=== PATIENT | female | born 1975 | race African-American/Black ===

== ENCOUNTER 2018-02-08 19:41 | Inpatient (IN) ==
[2018-02-09] MEDS ORDERED: ONDANSETRON 4 MG/2 ML VIAL IV STA (00:59)
[2018-02-09] MEDS ORDERED: KETOROLAC 30 MG/1 ML VIAL IV STA (00:59)
[2018-02-09] MEDS ORDERED: SODIUM CHLORIDE 0.9% 1,000 ML IV STA (00:59)
[2018-02-09] MEDS ORDERED: cefTRIAXone 1,000 MG in SODIUM CHLORIDE 0.9% 100 ML IV STA (00:59)
[2018-02-09] MEDS ORDERED: HYDROmorphone 2 MG/1 ML VIAL IV STA (00:59)
[2018-02-09 01:34] LABS: Apearance,Urine CLOUDY (Clear); Bacteria,Urine Moderate /HPF (Few); Bilirubin,Urine Negative (Negative); Blood, Urine Small mg/dL (Negative); Glucose,Urine (UA) >=500 mg/dL (Negative); Ketones,Urine Negative (Negative); Mucus,Urine Occasional /LPF (Occasional); Nitrite,Urine Positive (Negative); Protein,Urine 100 MG/DL; RBC,Urine 36 /HPF (0-4); Squamous Epithelial Cell,Urine Occasional /HPF (0-10); Urine Color Yellow (Yellow); Urine Specific Gravity 1.018 (1.001-1.035); Urine Urobilinogen < 2.0 EU/DL (0.2-1.0); WBC,Urine 785 /HPF (0-6)
[2018-02-09 01:51] LABS: Basophils # 0.1 10*3/uL (0.0-0.2); Basophils % 0.3 % (0.0-0.8); Eosinophils % 0.2 % (0.00-10.9); Hematocrit 29.6 VOL% (35.7-47.0); Hemoglobin 8.4 GM/DL (12.0-16.0); Immature Granulocytes % 0.5 %; Lymphocytes # 1.9 10*3/uL (1.4-4.0); Lymphocytes % 9.2 % (21.3-54.2); Mean Corpuscular HGB Conc 28.4 GM/DL (32-36); Mean Corpuscular Hemoglobin 16 PG (27-34); Mean Corpuscular Volume 57.3 FL (87-102); Monocytes # 2.1 10*3/uL (0.11-0.8); Monocytes % 10.2 % (1.7-12.7); Neutrophils % 79.6 % (38.7-73.9); Platelet Count 419 T/CUMM (130-400); Red Blood Count 5.17 MC/CUMM (3.8-5.5); Red Cell Distribution Width 20.7 % (9.3-17.3); White Blood Count 20.1 T/CUMM (4-12)
[2018-02-09] MEDS ORDERED: HYDROmorphone 2 MG/1 ML VIAL ONE (02:03)
[2018-02-09] MEDS ORDERED: cefTRIAXone 1,000 MG VIAL ONE (02:03)
[2018-02-09] MEDS ORDERED: KETOROLAC 30 MG/1 ML VIAL ONE (02:03)
[2018-02-09] MEDS ORDERED: ONDANSETRON 4 MG/2 ML VIAL ONE (02:03)
[2018-02-09 02:14] LABS: Albumin 3.5 G/DL (3.4-5.0); Bilirubin,Total 0.4 MG/DL (0.2-1.0); Calcium 9.1 MG/DL (8.5-10.1); Lactic Acid 0.9 MMOL/L (0.4-2.0); Osmolality,Calculated 275.8 MOS/KG (273-304); Potassium 3.9 MMOL/L (3.5-5.1); Total Protein 7.9 G/DL (6.4-8.3)
[2018-02-09] MEDS ORDERED: ACETAMINOPHEN 325 MG TABLET PO PRN (02:46)
[2018-02-09] MEDS ORDERED: ONDANSETRON 4 MG/2 ML VIAL IV PRN (02:46)
[2018-02-09] MEDS ORDERED: MORPHINE 4 MG/1 ML VIAL IV PRN (02:46)
[2018-02-09] MEDS ORDERED: diphenhydrAMINE CAP 25 MG CAPSULE PO ONE (02:51)
[2018-02-09] MEDS ORDERED: LEVOFLOXACIN INJ 500 MG in PREMIX 1 EACH IV SCH (03:00)
[2018-02-09] MEDS: SODIUM CHLORIDE 0.9% 1,000 ML IV SCH ×2 (03:47→19:15)
[2018-02-09 04:28] LABS: Band Neutrophils 3 % (0-10); Lymphocytes 15 % (20-55); Platelet Estimate Normal; Segmented Neutrophils 73 % (50-85); Total Cells Counted 100
[2018-02-09 04:29] LABS: Atypical Lymphocytes Few; Microcytosis 2+
[2018-02-09 04:30] LABS: Hypochromasia 1+
[2018-02-09] MEDS ORDERED: DEXTROSE 50% 25 GM/50 ML VIAL IV PRN (07:23)
[2018-02-09] MEDS ORDERED: GLUCAGON 1 MG VIAL IM PRN (07:23)
[2018-02-09 07:55] LABS: Basophils # 0.1 10*3/uL (0.0-0.2); Basophils % 0.4 % (0.0-0.8); Eosinophils # 0.1 10*3/uL (0.0-0.87); Eosinophils % 0.7 % (0.00-10.9); Hematocrit 25.9 VOL% (35.7-47.0); Hemoglobin 7.7 GM/DL (12.0-16.0); Immature Granulocytes % 0.6 %; Lymphocytes # 2.4 10*3/uL (1.4-4.0); Mean Corpuscular HGB Conc 29.7 GM/DL (32-36); Mean Corpuscular Hemoglobin 17 PG (27-34); Mean Corpuscular Volume 55.9 FL (87-102); Monocytes # 1.9 10*3/uL (0.11-0.8); Monocytes % 11.6 % (1.7-12.7); Neutrophils # 11.6 10*3/uL (1.4-7.4); Neutrophils % 71.7 % (38.7-73.9); Platelet Count 365 T/CUMM (130-400); Red Blood Count 4.63 MC/CUMM (3.8-5.5); Red Cell Distribution Width 20.4 % (9.3-17.3); White Blood Count 16.2 T/CUMM (4-12)
[2018-02-09 08:05] LABS: Target Cells Few
[2018-02-09 08:06] LABS: Hypochromasia 2+; Microcytosis 2+; Polychromasia Slight
[2018-02-09 08:07] LABS: Ovalocytes Few; Platelet Estimate Normal
[2018-02-09 08:16] LABS: Folate 8.1 NG/ML (5.4-24.0); Vitamin B12 294 PG/ML (211-911)
[2018-02-09 09:20] LABS: Sedimentation Rate-Westergren 35 MM/HR (0-20)
[2018-02-09] MEDS: INSULIN REGULAR 100 UNIT/ML SUBCUT SCH ×4 (09:33→22:00)
[2018-02-09] MEDS: ENOXAPARIN 40 MG/0.4 ML SYRINGE SUBCUT SCH (09:34)
[2018-02-09 10:46] LABS: Hemoglobin A1 (Alkaline) 72.9 % (96.5-98.5); Hemoglobin A2 (Alkaline) 2.7 % (1.5-3.5)
[2018-02-09 10:49] LABS: Hemoglobin S (Alkaline) 24.4 %
[2018-02-09] MEDS ORDERED: SODIUM CHLORIDE 0.9% IV ONE (11:30)
[2018-02-09] MEDS ORDERED: GENTAMICIN IV ONE (11:30)
[2018-02-09 16:18] LABS: Apearance,Urine CLOUDY (Clear); Bilirubin,Urine Negative (Negative); Blood, Urine Negative (Negative); Glucose,Urine (UA) >=500 mg/dL (Negative); Ketones,Urine Negative (Negative); Mucus,Urine Occasional /LPF (Occasional); Nitrite,Urine Negative (Negative); Protein,Urine 30 MG/DL; RBC,Urine 4 /HPF (0-4); Squamous Epithelial Cell,Urine Occasional /HPF (0-10); Urine Color Yellow (Yellow); Urine Specific Gravity 1.014 (1.001-1.035); Urine Urobilinogen < 2.0 EU/DL (0.2-1.0); WBC,Urine 339 /HPF (0-6)
[2018-02-09 18:07] LABS: Hematocrit 26.2 VOL% (35.7-47.0); Hemoglobin 7.6 GM/DL (12.0-16.0)
[2018-02-09] MEDS ORDERED: SODIUM CHLORIDE 0.9% 1,000 ML IV PRN (18:26)
[2018-02-09] MEDS: FERROUS SULFATE 325 MG TABLET PO SCH (20:22)
[2018-02-09] MEDS: LEVOFLOXACIN INJ 750 MG in PREMIX 1 EACH IV SCH (20:22)
[2018-02-09 21:24] LABS: % Iron Saturation 3.9 % (18-50)
[2018-02-10] MEDS: SODIUM CHLORIDE 0.9% 1,000 ML IV SCH ×3 (04:00→20:46)
[2018-02-10 06:21] LABS: Basophils # 0.1 10*3/uL (0.0-0.2); Basophils % 0.4 % (0.0-0.8); Eosinophils # 0.2 10*3/uL (0.0-0.87); Eosinophils % 1.6 % (0.00-10.9); Hematocrit 25.9 VOL% (35.7-47.0); Hemoglobin 7.4 GM/DL (12.0-16.0); Immature Granulocytes % 0.6 %; Immature Granulocytes Absolute 0.07 #; Lymphocytes # 2.1 10*3/uL (1.4-4.0); Lymphocytes % 17.6 % (21.3-54.2); Mean Corpuscular HGB Conc 28.6 GM/DL (32-36); Mean Corpuscular Hemoglobin 16 PG (27-34); Mean Corpuscular Volume 56.9 FL (87-102); Monocytes # 1.5 10*3/uL (0.11-0.8); Monocytes % 12.7 % (1.7-12.7); Neutrophils # 7.9 10*3/uL (1.4-7.4); Neutrophils % 67.1 % (38.7-73.9); Platelet Count 385 T/CUMM (130-400); Red Blood Count 4.55 MC/CUMM (3.8-5.5); Red Cell Distribution Width 20.4 % (9.3-17.3); White Blood Count 11.8 T/CUMM (4-12)
[2018-02-10 06:39] LABS: Giant Platelets Few; Hypochromasia 1+; Ovalocytes Slight; Platelet Estimate Adequate; Polychromasia Slight
[2018-02-10 06:54] LABS: Calcium 8.1 MG/DL (8.5-10.1); Osmolality,Calculated 274.5 MOS/KG (273-304); Potassium 4.2 MMOL/L (3.5-5.1)
[2018-02-10] MEDS ORDERED: SODIUM CHLORIDE 0.9% 1,000 ML IV PRN (07:28)
[2018-02-10] MEDS: ENOXAPARIN 40 MG/0.4 ML SYRINGE SUBCUT SCH (09:36)
[2018-02-10] MEDS: FERROUS SULFATE 325 MG TABLET PO SCH ×2 (09:37→20:47)
[2018-02-10] MEDS: INSULIN REGULAR 100 UNIT/ML SUBCUT SCH ×4 (09:37→21:41)
[2018-02-10] MEDS ORDERED: GENTAMICIN INJ 80 MG in PREMIX 1 EACH IV ONE (10:00)
[2018-02-10] MEDS: LEVOFLOXACIN INJ 750 MG in PREMIX 1 EACH IV SCH (20:47)
[2018-02-11] MEDS ORDERED: IRON SUCROSE 200 MG in SODIUM CHLORIDE 0.9% 100 ML IV ONE (06:00)
[2018-02-11 07:13] LABS: Basophils # 0.1 10*3/uL (0.0-0.2); Basophils % 0.5 % (0.0-0.8); Eosinophils # 0.2 10*3/uL (0.0-0.87); Eosinophils % 2.1 % (0.00-10.9); Hematocrit 36.3 VOL% (35.7-47.0); Immature Granulocytes % 0.4 %; Immature Granulocytes Absolute 0.05 #; Lymphocytes % 18.1 % (21.3-54.2); Mean Corpuscular Hemoglobin 19 PG (27-34); Mean Corpuscular Volume 62.6 FL (87-102); Monocytes # 1.4 10*3/uL (0.11-0.8); Monocytes % 12.9 % (1.7-12.7); Neutrophils # 7.3 10*3/uL (1.4-7.4); Platelet Count 383 T/CUMM (130-400); Red Cell Distribution Width 27.8 % (9.3-17.3); White Blood Count 11.1 T/CUMM (4-12)
[2018-02-11 07:15] LABS: Hemoglobin 10.9 GM/DL (12.0-16.0)
[2018-02-11 07:36] LABS: Hypochromasia 1+; Microcytosis 1+; Target Cells Few
[2018-02-11 07:37] LABS: Ovalocytes Slight; Spherocytes Few
[2018-02-11 07:38] LABS: Platelet Estimate Normal; Polychromasia Slight
[2018-02-11 07:43] LABS: Albumin 2.8 G/DL (3.4-5.0); Bilirubin,Total 0.4 MG/DL (0.2-1.0); Calcium 8.9 MG/DL (8.5-10.1); Osmolality,Calculated 274.7 MOS/KG (273-304); Potassium 4.2 MMOL/L (3.5-5.1); Total Protein 6.9 G/DL (6.4-8.3)
[2018-02-11] MEDS ORDERED: metFORMIN 500 MG TABLET PO SCH (08:00)
[2018-02-11 08:02] VITALS: BP 133/82
[2018-02-11] MEDS: ENOXAPARIN 40 MG/0.4 ML SYRINGE SUBCUT SCH (08:27)
[2018-02-11] MEDS: FERROUS SULFATE 325 MG TABLET PO SCH (08:27)
[2018-02-11] MEDS: INSULIN REGULAR 100 UNIT/ML SUBCUT SCH (08:27)
== END 2018-02-11 09:43 | disposition home or self-care (01) | DRG 690 ==
LOC: N.ED 19:41 → N.EDINP 02-09 02:43 → N.2E 02-09 03:22
PROVIDERS: ADMIT Family Medicine; ATTEND Family Medicine